=== PATIENT | male | born 1990 | race Caucasian/White ===

== ENCOUNTER → 2022-05-26 | Outpatient (CLI) | payer OTHER, SELFPAY ==
[2022-05-26 18:12] LABS: Absolute Lymphocyte Count 2.28 X10^3/uL (0.83-4.51); Absolute Neutrophil Count 1.4 X10^3/uL (2.0-7.7); Basophil# 0.05 X10^3/uL; Basophil% 1.1 % (0-1); Eosinophil# 0.17 X10^3/uL; Eosinophils% 3.8 % (0-5); Hematocrit 42.1 % (40-54); Hemoglobin 14.5 g/dL (13.0-16.5); Lymphocyte # 2.28 X10^3/ul (0.83-4.51); Lymphocyte % 51.4 % (19-41); Mean Corp Hgb Conc 34.4 g/dL (32-36); Mean Corpuscular Hgb 31.8 pg (27.0-32.0); Mean Corpuscular Volume 92.3 fL (80-94); Mean Platelet Vol. 9.5 fl (6.2-12.0); Monocyte# 0.58 X10^3/uL; Monocyte% 13.1 % (0-10); NRBC Flagged by Analyzer 0 % (0-5); Neutrophil # 1.36 X10^3/uL (2.7-7.7); Neutrophil % 30.6 % (47-70); Platelet Count 275 K/mm3 (150-450); RBC Distribution Width CV 11.3 % (11.6-14.6); RBC Distribution Width SD 38.5 fl (35.1-43.9); Red Blood Count 4.56 M/mm3 (4.6-6.2); White Blood Count 4.4 K/mm3 (4.4-11.0)
== END | disposition home or self-care (01) ==
LOC: MTLAB 15:26
PROVIDERS: PCP Family Medicine; Referring Provider Family Medicine; Visit Provider Family Medicine
DX: R53.83 Other fatigue (principal)
CPT/HCPCS: 36415; 80053; 84403; 85025

== ENCOUNTER → 2022-05-31 | Outpatient (CLI) | payer OTHER, SELFPAY ==
[2022-05-31 18:53] LABS: ALB/GLOB Ratio 1.3 RATIO (0.9-2.4); AST(SGOT) 24 U/L (15-37); Alanine Aminotransfer ALT/SGPT 29 U/L (16-61); Albumin, Serum 4.2 g/dL (3.2-5.0); Alkaline Phosphatase 65 U/L (45-117); Anion Gap 3 (5-15); BUN 21 mg/dL (7-18); BUN/Creat Ratio 22.6 RATIO (10-20); Calcium,Total 9.5 mg/dL (8.5-10.1); Chloride 105 mmol/L (98-107); Creatinine, Serum 0.93 mg/dL (0.70-1.30); EST Glomerular Filtration Rate 100 mL/min (>60); Est Glom Filt Rate - Afr Amer 121 mL/min (>60); Globulin 3.3 g/dL (2.2-4.2); Glucose 86 mg/dL (74-106); Potassium 3.7 mmol/L (3.5-5.1); Protein, Total 7.5 g/dL (6.4-8.2); Sodium Level 138 mmol/L (136-145)
== END | disposition home or self-care (01) ==
LOC: MTLAB 06-02 09:56
PROVIDERS: PCP Family Medicine; Referring Provider Family Medicine; Visit Provider Family Medicine
DX: R53.83 Other fatigue (principal)
CPT/HCPCS: 80053; 84403

== ENCOUNTER → 2024-05-21 | Outpatient (CLI) | payer OTHER, SELFPAY ==
[2024-05-21 10:36] LABS: Hematocrit 41.6 % (40-54); Hemoglobin 14.3 g/dL (13.0-16.5); Mean Corp Hgb Conc 34.4 g/dL (32-36); Mean Corpuscular Hgb 31.8 pg (27.0-32.0); Mean Corpuscular Volume 92.4 fL (80-94); Mean Platelet Vol. 9.3 fl (6.2-12.0); Platelet Count 313 K/mm3 (150-450); RBC Distribution Width CV 11.6 % (11.6-14.6); RBC Distribution Width SD 39.5 fl (35.1-43.9); White Blood Count 5.3 K/mm3 (4.4-11.0)
[2024-05-21 10:55] LABS: ALB/GLOB Ratio 1.5 RATIO (0.9-2.4); AST(SGOT) 49 U/L (<=37); Alanine Aminotransfer ALT/SGPT 57 U/L (<=46); Albumin, Serum 4.4 g/dL (3.5-5.0); Alkaline Phosphatase 56 U/L (40-129); Anion Gap 12 (5-15); BUN 22 mg/dL (4-19); Calcium,Total 9.2 mg/dL (7.6-11.0); Carbon Dioxide 24.3 mmol/L (21.0-32.0); Chloride 102 mmol/L (98-108); Cholesterol 81 mg/dL (<=200); EST Glomerular Filtration Rate 115 (>60); Glucose 88 mg/dL (70-99); High Density Lipoprotein 32 mg/dL; Low Density Lipoprotein Calc. 41 mg/dL; Potassium 4.3 mmol/L (3.3-5.1); Protein, Total 7.4 g/dL (5.9-8.4); Sodium Level 138 mmol/L (133-145); Total Bilirubin 0.36 mg/dL (0.00-1.30); Triglycerides 43 mg/dL; Very Low Density Lipoprotein 9 mg/dL (5-40); cholesterol:hdl ratio screen 2.56
== END | disposition home or self-care (01) ==
LOC: MFPLAB 09:33
PROVIDERS: PCP Family Medicine; Referring Provider Family Medicine; Visit Provider Family Medicine
DX: F55.8 Abuse of other non-psychoactive substances (principal); Z13.220 Encounter for screening for lipoid disorders
CPT/HCPCS: 36415; 80053; 80061; 84403; 85027

== ENCOUNTER → 2025-01-08 | Outpatient (CLI) | payer OTHER, SELFPAY ==
--- OUTSIDE RECORDS SUMMARY | 2025-01-08 08:34 | XMS RPT_ITS | CCD ---
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 Clarke Primary Care Provider Wendy VEGAS, Dr. Clarke Attending Provider Wendy VEGAS, Dr. 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: 05-30-2024 Chronic Results Test Name Value Interpretation Reference Range Facility Anion gap in Serum or Plasma Ordered By: Vince Nguyen on 05-21-2024 Anion gap [Moles/Vol] 12 mmol/L 5-15 [facility] BUN/creatinine ratioOrdered By: Vince Nguyen on 05-21-2024 Urea nitrogen/Creatinine [Mass ratio] 24.0 mg/mg High 10-20 [facility] Bilirubin, totalOrdered By: Vince Nguyen on 05-21-2024 Bilirubin [Mass/Vol] 0.36 mg/dL 0.00-1.30 [facility] CBC-Complete Blood Cnt No Di ffon 05-21-2024 Erythrocyte distribution width (RBC) [Ratio] 11.6 % Normal 11.6-14.6 [facility] Comment on above: Order Comment: Order Date: 05/21/24 Order Info: [id number] - CBC Performed By: #### L 100.0500, L500.4100, L500.4050 #### [facility] [address] [place], [address] Hematocrit (Bld) [Volume fraction] 41.6 % Normal 40-54 [facility] Comment on above: Order Comment: Order Date: 05/21/24 Order Info: [id number] - CBC Performed By: #### L 100.0500, L500.4100, L500.4050 #### [facility] [address] [place], [address] Hemoglobin (Bld) [Mass/Vol] 14.3 g/dL Normal 13.0-16.5 [facility] Comment on above: Order Comment: Order Date: 05/21/24 Order Info: [id number] - CBC Performed By: #### L 100.0500, L500.4100, L500.4050 #### [facility] [address] [place], [address] MCH (RBC) [Entitic mass] 31.8 pg Normal 27.0-32.0 [facility] Comment on above: Order Comment: Order Date: 05/21/24 Order Info: [id number] - CBC Performed By: #### L 100.0500, L500.4100, L500.4050 #### [facility] [address] [place], [address] MCHC (RBC) [Mass/Vol] 34.4 g/dL Normal 32-36 [facility] Comment on above: Order Comment: Order Date: 05/21/24 Order Info: [id number] - CBC Performed By: #### L 100.0500, L500.4100, L500.4050 #### [facility] [address] [place], [address] MCV (RBC) [Entitic vol] 92.4 fL Normal 80-94 [facility] Comment on above: Order Comment: Order Date: 05/21/24 Order Info: [id number] - CBC Performed By: #### L 100.0500, L500.4100, L500.4050 #### [facility] [address] [place], [address] Platelet mean volume (Bld) [Entitic vol] 9.3 fL Normal 6.2-12.0 [facility] Comment on above: Order Comment: Order Date: 05/21/24 Order Info: [id number] - CBC Performed By: #### L 100.0500, L500.4100, L500.4050 #### [facility] [address] [place], [address] Platelets (Bld) [#/Vol] 313 10*3/uL Normal 150-450 [facility] Comment on above: Order Comment: Order Date: 05/21/24 Order Info: [id number] - CBC Performed By: #### L 100.0500, L500.4100, L500.4050 #### [facility] [address] [place], [address] RBC (Bld) [#/Vol] 4.50 10*6/uL Low 4.6-6.2 [facility] Comment on above: Order Comment: Order Date: 05/21/24 Order Info: [id number] - CBC Performed By: #### L 100.0500, L500.4100, L500.4050 #### [facility] [address] [place], [address] RDW SD 39.5 fl Normal 35.1-43.9 [facility] Comment on above: Order Comment: Order Date: 05/21/24 Order Info: [id number] - CBC Performed By: #### L 100.0500, L500.4100, L500.4050 #### [facility] [address] [place], [address] WBC (Bld) [#/Vol] 5.3 10*3/uL Normal 4.4-11.0 [facility] Comment on above: Order Comment: Order Date: 05/21/24 Order Info: [id number] - CBC Performed By: #### L 100.0500, L500.4100, L500.4050 #### [facility] [address] [place], [address] Calculated very low density lipoprotein (VLDL) cholesterol measurementOrdered By: Vince Nguyen on 05-21-2024 VLDL Cholesterol 9 mg/dL 5-40 [facility] Carbon dioxide, total [Moles /volume] in Central venous bloodOrdered By: Vince Nguyen on 05-21-2024 CO2 [Moles/Vol] 24.3 mmol/L 21.0-32.0 [facility] Chloride assayOrdered By: Luis Miguel Nguyen on 05-21-2024 Chloride [Moles/Vol] 102 mmol/L 98-108 [facility] Comprehensive Metabolic Prof ilon 05-21-2024 Albumin [Mass/Vol] 4.4 g/dL Normal 3.5-5.0 [facility] Comment on above: Order Comment: Order Date: 05/21/24 Order Info: [id number] - CMP Order Info: [id number] - LIPID Performed By: #### L 100.0500, L500.4100, L500.4050 #### [facility] [address] [place], [address] Albumin/Globulin [Mass ratio] 1.5 {ratio} Normal 0.9-2.4 [facility] Comment on above: Order Comment: Order Date: 05/21/24 Order Info: [id number] - CMP Order Info: [id number] - LIPID Performed By: #### L 100.0500, L500.4100, L500.4050 #### [facility] [address] [place], [address] ALK PHOS 56 U/L Normal 40-129 [facility] Comment on above: Order Comment: Order Date: 05/21/24 Order Info: [id number] - CMP Order Info: [id number] - LIPID Performed By: #### L 100.0500, L500.4100, L500.4050 #### [facility] [address] [place], [address] ALT [Catalytic activity/Vol] 57 U/L High <=46 [facility] Comment on above: Order Comment: Order Date: 05/21/24 Order Info: [id number] - CMP Order Info: [id number] - LIPID Performed By: #### L 100.0500, L500.4100, L500.4050 #### [facility] [address] [place], [address] AST [Catalytic activity/Vol] 49 U/L High <=37 [facility] Comment on above: Order Comment: Order Date: 05/21/24 Order Info: [id number] - CMP Order Info: [id number] - LIPID Performed By: #### L 100.0500, L500.4100, L500.4050 #### [facility] [address] [place], [address] Bilirubin [Mass/Vol] 0.36 mg/dL Normal 0.00-1.30 [facility] Comment on above: Order Comment: Order Date: 05/21/24 Order Info: [id number] - CMP Order Info: [id number] - LIPID Performed By: #### L 100.0500, L500.4100, L500.4050 #### [facility] [address] [place], [address] BUN/CRE 24.0 RATIO High 10-20 [facility] Comment on above: Order Comment: Order Date: 05/21/24 Order Info: [id number] - CMP Order Info: [id number] - LIPID Performed By: #### L 100.0500, L500.4100, L500.4050 #### [facility] [address] [place], [address] Calcium [Mass/Vol] 9.2 mg/dL Normal 7.6-11.0 [facility] Comment on above: Order Comment: Order Date: 05/21/24 Order Info: [id number] - CMP Order Info: [id number] - LIPID Performed By: #### L 100.0500, L500.4100, L500.4050 #### [facility] [address] [place], [address] Chloride [Moles/Vol] 102 mmol/L Normal 98-108 [facility] Comment on above: Order Comment: Order Date: 05/21/24 Order Info: [id number] - CMP Order Info: [id number] - LIPID Performed By: #### L 100.0500, L500.4100, L500.4050 #### [facility] [address] [place], [address] CO2 [Moles/Vol] 24.3 mmol/L Normal 21.0-32.0 [facility] Comment on above: Order Comment: Order Date: 05/21/24 Order Info: [id number]- - CMP Order Info: [id number] - LIPID Performed By: #### L 100.0500, L500.4100, L500.4050 #### [facility] [address] [place], [address] Creatinine [Mass/Vol] 0.90 mg/dL Normal 0.70-1.20 [facility] Comment on above: Order Comment: Order Date: 05/21/24 Order Info: [id number] - CMP Order Info: [id number] - LIPID Performed By: #### L 100.0500, L500.4100, L500.4050 #### [facility] [address] [place], [address] GAP 12 Normal 5-15 [facility] Comment on above: Order Comment: Order Date: 05/21/24 Order Info: [id number] - CMP Order Info: [id number] - LIPID Performed By: #### L 100.0500, L500.4100, L500.4050 #### [facility] [address] [place], [address] GFR/1.73 sq M.predicted among non-blacks MDRD (S/P/Bld) [Vol rate/Area] 115 mL/min/{1.73_m2} Normal >60 [facility] Comment on above: Order Comment: Order Date: 05/21/24 Order Info: [id number]- - CMP Order Info: [id number] - LIPID Result Comment: mL/m in/1.73m2 CKD-EPI Creatinine Equation (2020) Performed By: #### L 100.0500, L500.4100, L500.4050 #### [facility] [address] [place], [address] Globulin (S) [Mass/Vol] 3.0 g/dL Normal 2.2-4.2 [facility] Comment on above: Order Comment: Order Date: 05/21/24 Order Info: [id number]- - CMP Order Info: [id number] - LIPID Performed By: #### L 100.0500, L500.4100, L500.4050 #### [facility] [address] [place], [address] Glucose [Mass/Vol] 88 mg/dL Normal 70-99 [facility] Comment on above: Order Comment: Order Date: 05/21/24 Order Info: [id number]- - CMP Order Info: [id number] - LIPID Performed By: #### L 100.0500, L500.4100, L500.4050 #### [facility] [address] [place], [address] Potassium [Moles/Vol] 4.3 mmol/L Normal 3.3-5.1 [facility] Comment on above: Order Comment: Order Date: 05/21/24 Order Info: [id number] - CMP Order Info: [id number] - LIPID Performed By: #### L 100.0500, L500.4100, L500.4050 #### [facility] [address] [place], [address] Sodium [Moles/Vol] 138 mmol/L Normal 133-145 [facility] Comment on above: Order Comment: Order Date: 05/21/24 Order Info: [id number] - CMP Order Info: [id number] - LIPID Performed By: #### L 100.0500, L500.4100, L500.4050 #### [facility] [address] [place], [address] T PROT 7.4 g/dL Normal 5.9-8.4 [facility] Comment on above: Order Comment: Order Date: 05/21/24 Order Info: [id number] - CMP Order Info: [id number] - LIPID Performed By: #### L 100.0500, L500.4100, L500.4050 #### [facility] [address] [place], [address] Urea nitrogen [Mass/Vol] 22 mg/dL High 4-19 [facility] Comment on above: Order Comment: Order Date: 05/21/24 Order Info: [id number] - CMP Order Info: [id number] - LIPID Performed By: #### L 100.0500, L500.4100, L500.4050 #### [facility] [address] [place], [address] Erythrocyte distribution wid th ratioOrdered By: Vince Nguyen on 05-21-2024 Erythrocyte distribution width (RBC) [Ratio] 11.6 % 11.6-14.6 [facility] Erythrocyte distribution wid th standard deviationOrdered By: Vince Nguyen on 05-21-2024 Erythrocyte distribution width (RBC) [Entitic vol] 39.5 fL 35.1-43.9 [facility] GFR/1.73 sq M.predicted abelardo g non-blacks MDRD (S/P/Bld) [Vol rate/Area]Ordered By: Vince Nguyen on 05-21-2024 Estimated GFR (MDRD) Non-Af Amer 115 >60 [facility] Comment on above: mL/min/1.73m2 CKD-EP I Creatinine Equation (2020) Hematocrit Auto (Bld) [Volum e fraction]Ordered By: Vince Nguyen on 05-21-2024 Hematocrit (Bld) [Volume fraction] 41.6 % 40-54 [facility] Hemoglobin measurementOrdere d By: Vince Nguyen on 05-21-2024 Hemoglobin (Bld) [Mass/Vol] 14.3 g/dL 13.0-16.5 [facility] L509.3001on 05-21-2024 Testosterone [Mass/Vol] 174.00 ng/dL Low 300-1080 [facility] Comment on above: Order Comment: Order Date: 05/21/24 Order Info: [id number] - CMP Order Info: [id number] - LIPID Performed By: #### L 509.3001 #### [facility] [address] [place], [address] LDL calc ser/plasOrdered By: Vince Nguyen on 05-21-2024 LDL Cholesterol, Calculated 41 mg/dL [facility] Comment on above: Faeufhvfcf=251-057 m g/dL & Higher Ndlk=981 mg/dL or greater Laboratory - Chemistry and C hemistry - challengeOrdered By: Vince Nguyen on 05-21-2024 AST [Catalytic activity/Vol] 49 U/L High <38 [facility] Testosterone [Mass/Vol] 174.00 ng/dL Low 300-1080 [facility] Lipid Profileon 05-21-2024 CHOL:HDL 2.56 Normal [facility] Comment on above: Order Comment: Order Date: 05/21/24 Order Info: [id number] - CMP Order Info: [id number] - LIPID Performed By: #### L 100.0500, L500.4100, L500.4050 #### [facility] [address] [place], [address] Cholesterol [Mass/Vol] 81 mg/dL Normal <=200 [facility] Comment on above: Order Comment: Order Date: 05/21/24 Order Info: [id number] - CMP Order Info: [id number] - LIPID Result Comment: Chol esterol level, Desirable <200 mg/dL Borderline high cholesterol 200-239 mg/dL High cholesterol >=240 mg/dL Recommendations of the NCEP Adult Treatment Panel for the following risk-cutoff thresholds for the [place] population. Performed By: #### L 100.0500, L500.4100, L500.4050 #### [facility] [address] [place], [address] Cholesterol in HDL [Mass/Vol] 32 mg/dL Low [facility] Comment on above: Order Comment: Order Date: 05/21/24 Order Info: [id number] - CMP Order Info: [id number] - LIPID Result Comment: Becky onal Cholesterol Education Program (NCEP) guidelines: <40 mg/dL: Low HDL-cholesterol (major risk factor for CHD) >= 60 mg/dL: High HDL-cholesterol (negative risk factor for CHD) HDL-cholesterol is affected by a number of factors, e.g. smoking, exercise, hormones, sex and age. Performed By: #### L 100.0500, L500.4100, L500.4050 #### [facility] [address] [place], [address] Cholesterol in LDL [Mass/Vol] 41 mg/dL Normal [facility] Comment on above: Order Comment: Order Date: 05/21/24 Order Info: [id number] - CMP Order Info: [id number] - LIPID Result Comment: Bord wndvfw=903-020 mg/dL Higher Fmli=008 mg/dL or greater Performed By: #### L 100.0500, L500.4100, L500.4050 #### [facility] [address] [place], [address] Cholesterol in VLDL [Mass/Vol] 9 mg/dL Normal 5-40 [facility] Comment on above: Order Comment: Order Date: 05/21/24 Order Info: [id number] - CMP Order Info: [id number] - LIPID Performed By: #### L 100.0500, L500.4100, L500.4050 #### [facility] [address] [place], [address] Triglyceride [Mass/Vol] 43 mg/dL Normal [facility] Comment on above: Order Comment: Order Date: 05/21/24 Order Info: [id number] - CMP Order Info: [id number] - LIPID Result Comment: The drugs N-Acetylcysteine and Metamizole may falsely depress this assay. Normal range: <150 mg/dL Borderline High: 150-199 mg/dL High: 200-499 mg/dL Very High: >500 mg/dL Performed By: #### L 100.0500, L500.4100, L500.4050 #### [facility] [address] [place], [address] MCV (mean corpuscular volume ) determinationOrdered By: Vince Nguyen on 05-21-2024 MCV (RBC) [Entitic vol] 92.4 fL 80-94 [facility] Mean corpuscular hemoglobin (MCH) determinationOrdered By: Vince Nguyen on 05-21-2024 MCH (RBC) [Entitic mass] 31.8 pg 27.0-32.0 [facility] Mean corpuscular hemoglobin concentration (MCHC) determinationOrdered By: Vince Nguyen on 05-21-2024 MCHC (RBC) [Mass/Vol] 34.4 g/dL 32-36 [facility] Mean platelet volume determi nationOrdered By: Vince Nguyen on 05-21-2024 Platelet mean volume (Bld) [Entitic vol] 9.3 fL 6.2-12.0 [facility] Platelet countOrdered By: Luis Miguel Nguyen on 05-21-2024 Platelets (Bld) [#/Vol] 313 10*3/uL 150-450 [facility] Potassium (Unsp spec) [Mass/ Vol]Ordered By: Vince Nguyen on 05-21-2024 Potassium [Moles/Vol] 4.3 mmol/L 3.3-5.1 [facility] RBC Auto (Bld) [#/Vol]Ordere d By: Vince Nguyen on 05-21-2024 RBC (Bld) [#/Vol] 4.50 10*6/uL Low 4.6-6.2 [facility] Screening total cholesterol/ high density lipoprotein (HDL) cholesterol ratioOrdered By: Vince Nguyen on 05-21-2024 Cholesterol.total/Cholest vaughn in HDL [Mass ratio] 2.56 {ratio} [facility] Serum creatinine measurement (mass/volume)Ordered By: Vince Nguyen on 05-21-2024 Creatinine [Mass/Vol] 0.90 mg/dL 0.70-1.20 [facility] Serum globulin measurementOr dered By: Vince Nguyen on 05-21-2024 Globulin (S) [Mass/Vol] 3.0 g/dL 2.2-4.2 [facility] Serum glucose measurement (m ass/volume)Ordered By: Vince Nguyen on 05-21-2024 Glucose [Mass/Vol] 88 mg/dL 70-99 [facility] Serum or plasma alanine leiva otransferase (ALT) measurementOrdered By: Vince Nguyen on 05-21-2024 ALT [Catalytic activity/Vol] 57 U/L High <47 [facility] Serum or plasma albumin aixa urement (mass/volume)Ordered By: Vince Nguyen on 05-21-2024 Albumin [Mass/Vol] 4.4 g/dL 3.5-5.0 [facility] Serum or plasma albumin/glob ulin mass ratioOrdered By: Vince Nguyen on 05-21-2024 Albumin/Globulin [Mass ratio] 1.5 {ratio} 0.9-2.4 [facility] Serum or plasma alkaline maryann sphatase measurementOrdered By: Vince Nguyen on 05-21-2024 ALP [Catalytic activity/Vol] 56 U/L 40-129 [facility] Serum or plasma calcium aixa urement (mass/volume)Ordered By: Vince Nguyen on 05-21-2024 Calcium [Mass/Vol] 9.2 mg/dL 7.6-11.0 [facility] Serum or plasma cholesterol in HDL measurement (mass/volume)Ordered By: Vince Nguyen on 05-21-2024 Cholesterol in HDL [Mass/Vol] 32 mg/dL Low >40 [facility] Comment on above: National Cholesterol Education Program (NCEP) guidelines:<40 mg/dL: Low HDL-cholesterol (major risk factor for CHD)>= 60 mg/dL: High HDL-cholesterol (negative risk factor for CHD)HDL-cholesterol is affected by a number of factors, e.g. smoking, exercise, hormones, sex and age. Serum or plasma cholesterol measurement (mass/volume)Ordered By: Vince Nguyen on 05-21-2024 Cholesterol [Mass/Vol] 81 mg/dL <201 [facility] Comment on above: Cholesterol level, D esirable <200 mg/dLBorderline high cholesterol 200-239 mg/dLHigh cholesterol >=240 mg/dLRecommendations of the NCEP Adult Treatment Panel for the following risk-cutoff thresholds for the [place] population. Serum or plasma urea nitroge n measurement (mass/volume)Ordered By: Vince Nguyen on 05-21-2024 Urea nitrogen [Mass/Vol] 22 mg/dL High 4-19 [facility] Sodium levelOrdered By: Waylon Nguyen on 05-21-2024 Sodium [Moles/Vol] 138 mmol/L 133-145 [facility] Total proteinOrdered By: Megan Nguyen on 05-21-2024 Protein [Mass/Vol] 7.4 g/dL 5.9-8.4 [facility] Triglycerides measurementOrd ered By: Vince Nguyen on 05-21-2024 Triglyceride [Mass/Vol] 43 mg/dL <199 [facility] Comment on above: The drugs N-Acetylcy steine and Metamizole may falsely depress this assay. Normal range: <150 mg/dLBorderline High: 150-199 mg/dLHigh: 200-499 mg/dLVery High: >500 mg/dL White blood cell (WBC) count Ordered By: Vince Nguyen on 05-21-2024 WBC (Bld) [#/Vol] 5.3 10*3/uL 4.4-11.0 [facility] Basophil percentageOrdered B y: Dr. Nguyen on 05-31-2022 Bilirubin [Mass/Vol] 0.90 mg/dL 0.20-1.00 [facility] Comment on above: For patients on eltr ombopag therapy, use of Dimension [place] TBIL is not recommended. Chloride [Moles/Vol] 105 mmol/L 98-107 [facility] Glucose [Mass/Vol] 86 mg/dL 74-106 [facility] Potassium [Moles/Vol] 3.7 mmol/L 3.5-5.1 [facility] Protein [Mass/Vol] 7.5 g/dL 6.4-8.2 [facility] Sodium [Moles/Vol] 138 mmol/L 136-145 [facility] Testosterone [Mass/Vol] 838.64 ng/dL [facility] Comment on above: CENTRAL 90% REFERENC E RANGES MALE AGE <50 197.44 - 669.58 ng/dL MALE AGE > or = 50 187.72 - 684.19 ng/dL FEMALE AGE <50 8.38 - 35.01 ng/dL FEMALE AGE > or = 50 <7.00 - 35.92 ng/dL Effective as of 09/29/20 Laboratory - Chemistry and C hemistry - challengeOrdered By: Dr. Nguyen on 05-31-2022 ALP [Catalytic activity/Vol] 65 U/L 45-117 [facility] ALT [Catalytic activity/Vol] 29 U/L 16-61 [facility] CO2 [Moles/Vol] 30.0 mmol/L 21.0-32.0 [facility] Globulin (S) [Mass/Vol] 3.3 g/dL 2.2-4.2 [facility] Urea nitrogen/Creatinine [Mass ratio] 22.6 mg/mg 10-20 [facility] No Panel InformationOrdered By: Dr. Nguyen on 05-31-2022 Estimated GFR (MDRD) Amer 121 mL/min >60 [facility] Comment on above: GFR Calc Estimated GFR (MDRD) Non-Af Amer 100 mL/min >60 [facility] Comment on above: Non- GFR Calc Serum or plasma albumin aixa urement (mass/volume)Ordered By: Dr. Nguyen on 05-31-2022 Albumin [Mass/Vol] 4.2 g/dL 3.2-5.0 [facility] Serum or plasma albumin/glob ulin mass ratioOrdered By: Dr. Nguyen on 05-31-2022 Albumin/Globulin [Mass ratio] 1.3 {ratio} 0.9-2.4 [facility] Serum or plasma calcium aixa urement (mass/volume)Ordered By: Dr. Nguyen on 05-31-2022 Calcium [Mass/Vol] 9.5 mg/dL 8.5-10.1 [facility] Serum or plasma creatinine m easurement (mass/volume)Ordered By: Dr. Nguyen on 05-31-2022 Creatinine [Mass/Vol] 0.93 mg/dL 0.70-1.30 [facility] Comment on above: The validity of the calculated GFR & GFRAA in patients over 70 years has not been determined. Clinical correlation is essential. Serum or plasma urea nitroge n measurement (mass/volume)Ordered By: Dr. Nguyen on 05-31-2022 Urea nitrogen [Mass/Vol] 21 mg/dL 7-18 [facility] Thin prep Papanicolaou smear with manual screeningOrdered By: Dr. Nguyen on 05-31-2022 Thin prep Papanicolaou smear with manual screening 24 U/L 15-37 [facility] Thin prep Papanicolaou smear with manual screening 3 5-15 [facility] Absolute lymphocyte countOrd ered By: Dr. Nguyen on 05-26-2022 Lymphocytes Auto (Unsp spec) [#/Vol] 2.28 10*3/uL 0.83-4.51 [facility] Basophil percentageOrdered B y: Dr. Nguyen on 05-26-2022 Basophils/100 WBC (Bld) 1.1 % 0-1 [facility] Eosinophils/100 WBC (Bld) 3.8 % 0-5 [facility] Neutrophils (Bld) [#/Vol] 1.4 10*3/uL 2.0-7.7 [facility] Neutrophils/100 WBC (Bld) 30.6 % 47-70 [facility] WBC (Bld) [#/Vol] 4.4 10*3/uL 4.4-11.0 [facility] Blood erythrocytes count (nu mber/volume)Ordered By: Dr. Nguyen on 05-26-2022 RBC (Bld) [#/Vol] 4.56 10*6/uL 4.6-6.2 [facility] Blood hemoglobin measurement (mass/volume)Ordered By: Dr. Nguyen on 05-26-2022 Hemoglobin (Bld) [Mass/Vol] 14.5 g/dL 13.0-16.5 [facility] Blood lymphocytes/100 leukoc ytesOrdered By: Dr. Nguyen on 05-26-2022 Lymphocytes/100 WBC (Bld) 51.4 % 19-41 [facility] Blood monocytes/100 leukocyt esOrdered By: Dr. Nguyen on 05-26-2022 Monocytes/100 WBC (Bld) 13.1 % 0-10 [facility] Blood platelet mean volumeOr dered By: Dr. Nguyen on 05-26-2022 Platelet mean volume (Bld) [Entitic vol] 9.5 fL 6.2-12.0 [facility] Determination of erythrocyte mean corpuscular volume (MCV)Ordered By: Dr. Nguyen on 05-26-2022 MCV (RBC) [Entitic vol] 92.3 fL 80-94 [facility] Hematocrit Auto (Bld) [Volum e fraction]Ordered By: Dr. Nguyen on 05-26-2022 Hematocrit (Bld) [Volume fraction] 42.1 % 40-54 [facility] Laboratory - Hematology and Cell countsOrdered By: Dr. Nguyen on 05-26-2022 Erythrocyte distribution width (RBC) [Entitic vol] 38.5 fL 35.1-43.9 [facility] Erythrocyte distribution width (RBC) [Ratio] 11.3 % 11.6-14.6 [facility] Immature granulocytes/100 WBC (Bld) 0.000 % 0.0-0.9 [facility] Comment on above: IG% - Immature Granu locytes (promyelocytes, myelocytes and metamyelocytes) > 1% indicates that a LEFT SHIFT is Present. MCH (RBC) [Entitic mass] 31.8 pg 27.0-32.0 [facility] Nucleated RBC/100 WBC (Bld) [Ratio] 0 % 0-5 [facility] MCHC Auto (RBC) [Mass/Vol]Or dered By: Dr. Nguyen on 05-26-2022 MCHC (RBC) [Mass/Vol] 34.4 g/dL 32-36 [facility] Platelets bldOrdered By: Dr. Nguyen on 05-26-2022 Platelets (Bld) [#/Vol] 275 10*3/uL 150-450 [facility] Encounters Encounter Date Encounter Type Care Provider Facility Start: 05-21-2024 End: 05-21-[address] Vince Nguyen MD Work Phone: [facility] Work Phone: Start: 05-21-2024 End: 05-21-[address] Vince gNuyen MD -[facility] Start: 05-21-2024 End: 05-21-2024 ambulatory Vince Nguyen Facility:[facility] Start: 05-31-2022 End: 05-31-2022 ambulatory [facility] Work Phone: Start: 05-31-2022 End: 05-31-2022 Patient encounter procedure [facility] Start: 05-26-2022 End: 05-26-2022 ambulatory [facility] Work Phone: Start: 05-26-2022 End: 05-26-2022 Patient encounter procedure [facility] Payers Date Payer Category Payer Self-pay 2024 Unknown [id number] Unknown [facility] [id number] Unknown [id number] Social History Date Type [facility]ail [facility] Work Phone: Start: 1990 Sex Assigned At Male [facility] Work Phone: Start: 05-30-2024 Sex Male (finding) [facility] Evaluation note Note Date & Type Note Facility Evaluation note No assessment information availa ble [facility] Work Phone: Reason for referral (narrative) Note Date & Type Note Facility Reason for referral (narrative) No reason for referral information available [facility] Work Phone: Chief Complaint and Reason for Visit Chief Complaint 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 Brayan Nguyen MD Primary Care Provider Activ e Team Status: Inactive Member Role Status Dates Dr. Brayan Nguyen MD Primary Care Provider, Attending Provider, Referring Provider Active Team Status: Active Member Role Status Dates Dr. Brayan Nguyen MD Primary Care Provider, Attending Provider, Referring Provider Active Team Status: Active Member Role Status Dates Pauline Cuello Family Provider Active Dr. Vince Nguyen MD Primary Care Provider Acti ve Team Status: Inactive Member Role Status Dates Dr. Vince Nguyen MD Primary Care Provider Acti ve Start: May 21, 2024 End: May 21, 2024 Dr. Vince Nguyen MD Attending Provider Active Start: May 21, 2024 End: May 21, 2024 Dr. Vince Nguyen MD Referring Provider Active Start: May 21, 2024 End: May 21, 2024 Goals (unrecognized section and content) Goals may be documented in a n alternate sectionGoals may be documented in an alternate sectionGoals may be documented in an alternate section (unrecognized sect ion and content) No Status Records Found INFORMATION SOURCE (unrecogn ized section and content) DATE CREATED AUTHOR 05/31/2024 [facility] FOR RECORDS PERTAINING TO PATIENTS WHO ARE OR HAVE BEEN ENROLLED IN A CHEMICAL DEPENDENCY/SUBSTANCEABUSE PROGRAM, SOME INFORMATION MAY BE OMITTED. This clinical summary was aggregated from multiple sources. Caution should be exercised in using it in the provision of clinical care. This summary normalizes information from multiple sources, and as a consequence, information in this document may materially change the coding, format and clinical context of patient data. In addition, data may be omitted in some cases. CLINICAL DECISIONS SHOULD BE BASED ON THE PRIMARY CLINICAL RECORDS. [facility] [employer] [facility] provides no warranty or guarantee of the accuracy or completeness of information in this document.
[2025-01-08 10:59] LABS: AST(SGOT) 30 U/L (<=37); Alanine Aminotransfer ALT/SGPT 23 U/L (<=46); Albumin, Serum 4.4 g/dL (3.5-5.0); Alkaline Phosphatase 61 U/L (40-129); Bilirubin, Direct 0.20 mg/dL (0.00-0.30); Globulin 2.9 g/dL (2.2-4.2)
== END | disposition home or self-care (01) ==
LOC: MFPLAB 08:13
PROVIDERS: PCP Family Medicine; Visit Provider Family Medicine
DX: R79.89 Other specified abnormal findings of blood chemistry (principal)
CPT/HCPCS: 36415; 80076; 84403